=== PATIENT | female | born 1975 | race Hispanic/Latino ===

== ENCOUNTER 2017-06-04 18:01 | Emergency (ER) | payer BC ==
[2017-06-04 18:41] LABS: Blood, Urine Large (Negative); Glucose, Urine (Dipstick) Negative (Negative); Ketone, Urine 15 mg/dL (Negative); Protein, Urine (Dipstick) 100 mg/dL (Neg-Trace)
[2017-06-04 18:44] LABS: #Basophils 0.1 thou/uL (0.0-0.2); #Eosinphils 0.4 thou/uL (0.0-0.7); #Lymphocytes 3.6 thou/uL (1.20-3.40); #Monocytes 0.8 thou/uL (0.11-0.59); %Basophils 0.6 % (0.0-1.0); %Eosinophils 2.7 % (0.0-10.0); %Lymphocytes 26.1 % (21.0-51.0); %Monocytes 6.1 % (0.0-10.0); Hematocrit 41.9 % (36.0-47.0); Mean Platelet Volume 7.4 fL (7.4-10.4); Red Blood Cell (RBC) Count 4.81 mill/uL (4.20-5.40); White Blood Cell (WBC) Count 13.9 thou/uL (4.8-10.8)
[2017-06-04 18:48] LABS: Bilirubin Unable to Interpret (Negative); Nitrite Negative (Negative)
[2017-06-04 18:49] LABS: Bacteria/HPF None Seen HPF (None Seen); RBC/HPF GREATER THAN 50-TNTC HPF (0-3)
[2017-06-04 18:50] LABS: Hyaline Casts/LPF NONE SEEN LPF (0-3 Hyaline)
[2017-06-04 19:07] LABS: ALT (SGPT) 36 U/L (8-55); AST (SGOT) 34 U/L (5-34); Alkaline Phosphatase 92 U/L (40-150); Anion Gap 14 mmol/L (10-20); BUN (Urea Nitrogen) 12 mg/dL (7.0-18.7); Bilirubin, Total 0.3 mg/dL (0.2-1.2); Calc. Creatinine Clearance 0 mL/min (70-130); Calcium 9.6 mg/dL (7.8-10.44); Carbon Dioxide 26 mmol/L (22-29); Chloride 99 mmol/L (98-107); Estimated GFR-MDRD 70; Globulin 4.7 g/dL (2.4-3.5); Lipase 10 U/L (8-78); Protein, Total 8.7 g/dL (6.0-8.3)
[2017-06-04] MEDS ORDERED: Ketorolac Tromethamine 30 MG/ML VIAL ONE (19:36)
[2017-06-04] MEDS ORDERED: diphenhydrAMINE 50 MG/ML VIAL ONE (19:36)
[2017-06-04] MEDS ORDERED: Metoclopramide HCl 10 MG/2 ML VIAL ONE (19:36)
--- NOTE | 2017-06-04 20:42 | CT ---
CT OF ABDOMEN AND PELVIS PERFORMED WITH INTRAVENOUS CONTRAST ENHANCEMENT: History: Left flank pain. Comparison: 08-21-16 FINDINGS: The lung bases are clear. There are diffuse fatty changes of the liver, which his enlarged, measuring 24 cm. The spleen measur es 13.2 cm. Pancreas and gallbladder regions are unremarkable. Right and left adrenal glands are normal in appearance. Right and left kidneys are normal in size. T he left renal calculus which was located in the lower pole on the left kidney on this exam is locate d within the left renal pelvis measuring approximately 12 mm in size. There does not appear to be an y significant dilatation associated with this. This could intermittently obstruct. No ureteral calcu simon is noted. No significant periaortic or mesenteric adenopathy. CT OF PELVIS PERFORMED WITHOUT CONTRAST ENHANCEMENT: Left sided abdominal wall hernia is noted. The appendix is normal. No adenopathy or mass. Bilateral tubulization is seen. IMPRESSION: 1. Fatty changes of the liver with mild hepatosplenomegaly. 2. 12 mm calculus located in the left renal pelvis, although there is no significant dilatation at t his time the position of this could cause intermittent obstruction. 3. Stable appearance to a left sided lower abdominal wall hernia. POS: [facility]
[2017-06-04] MEDS ORDERED: Acetaminophen 500 MG TAB ONE (22:51)
== END 2017-06-04 23:12 | disposition home or self-care (01) ==
LOC: ERS 18:01
DX: K43.9 Ventral hernia without obstruction or gangrene (principal); R51 Headache; E11.9 Type 2 diabetes mellitus without complications; E03.9 Hypothyroidism, unspecified; E78.5 Hyperlipidemia, unspecified; I10 Essential (primary) hypertension; Z79.84 Long term (current) use of oral hypoglycemic drugs; Z79.899 Other long term (current) drug therapy
CPT/HCPCS: 36415; 74176; 80053; 81003; 81015; 81025; 83690; 85025; 87086; 96361; 96374; 96375; J1200; J1885; J2765

== ENCOUNTER 2017-07-22 12:51 | Emergency (ER) | payer BC ==
[2017-07-22 13:53] LABS: Bilirubin Negative (Negative); Blood, Urine Large (Negative); Glucose, Urine (Dipstick) 100 mg/dL (Negative); Ketone, Urine Trace mg/dL (Negative); Nitrite Negative (Negative); Protein, Urine (Dipstick) 100 mg/dL (Neg-Trace); Urobilinogen 0.2 mg/dL (0.2-1.0)
[2017-07-22 13:55] LABS: Bacteria/HPF 2+ HPF (None Seen); Hyaline Casts/LPF 0-3 HYALINE CAST LPF (0-3 Hyaline); RBC/HPF GREATER THAN 50-TNTC HPF (0-3)
[2017-07-22 13:55] LABS: #Eosinphils 0.3 thou/uL (0.0-0.7); #Lymphocytes 2.9 thou/uL (1.20-3.40); #Monocytes 0.7 thou/uL (0.11-0.59); #Neutrophils 5.5 thou/uL (1.40-6.50); %Basophils 0.4 % (0.0-1.0); %Eosinophils 2.9 % (0.0-10.0); %Lymphocytes 30.8 % (21.0-51.0); %Monocytes 7.3 % (0.0-10.0); Hematocrit 37.9 % (36.0-47.0); Mean Platelet Volume 7.8 fL (7.4-10.4); Red Blood Cell (RBC) Count 4.34 mill/uL (4.20-5.40); White Blood Cell (WBC) Count 9.4 thou/uL (4.8-10.8)
[2017-07-22 14:06] LABS: Oval Fat Bodies/HPF None Seen HPF (None Seen); Trichomonas/HPF None Seen HPF (None Seen)
[2017-07-22 14:13] LABS: ALT (SGPT) 34 U/L (8-55); AST (SGOT) 33 U/L (5-34); Alkaline Phosphatase 87 U/L (40-150); Anion Gap 15 mmol/L (10-20); BUN (Urea Nitrogen) 8 mg/dL (7.0-18.7); Bilirubin, Total 0.4 mg/dL (0.2-1.2); Calc. Creatinine Clearance 0 mL/min (70-130); Calcium 9.3 mg/dL (7.8-10.44); Carbon Dioxide 24 mmol/L (22-29); Chloride 105 mmol/L (98-107); Estimated GFR-MDRD Greater than 90; Globulin 4.2 g/dL (2.4-3.5); Protein, Total 7.8 g/dL (6.0-8.3)
[2017-07-22] MEDS ORDERED: Ketorolac Tromethamine 30 MG/ML VIAL ONE (16:16)
--- NOTE | 2017-07-22 16:31 | CT ---
CT OF ABDOMEN AND PELVIS 07/22/17 COMPARISON: 06/04/17 HISTORY: Left sided flank pain radiating into the left lower quadrant for one week. TECHNIQUE: Serial axial CT imaging is obtained at 5 mm intervals from the lung bases through the pubic symphysis without contrast. Coronal reformatted imaging obtained. FINDINGS: The lack of contrast limits assessment of the viscera, bowel, vascular structures and for lymphadenop athy. Imaged lung bases are unremarkable. No free intraperitoneal air or fluid. Diffuse hypodensity of the hepatic parenchyma noted, evidence of steatosis. Limited assessment of gallbladder, spleen, pancreas, and adrenal glands is unremarkable. Right kidney is unremarkable, with no evidence for right sided n ephrolithiasis or obstructive uropathy. There is a stone within the renal hilum on the left measuring 1.2 cm, stable. No left sided hydroneph rosis or evidence of left sided obstructive uropathy. There is a left lower quadrant fat containing h ernia lateral to the rectus abdominis musculature, stable. Limited assessment of the bowel demonstrates no evidence for obstruction. The appendix appears unrema rkable. There is scattered atherosclerotic calcification of the abdominal aorta. No acute osseous abnormality is seen. IMPRESSION: Stable 1.2 cm stone within the left renal hilum. No evidence for obstructive uropathy on either side. POS: [facility]
[2017-07-22] MEDS ORDERED: cefTRIAXone\\ROCEPHIN 2 GM in Sodium Chloride 0.9% 100 ML IVPB SCH (17:00)
== END 2017-07-22 18:10 | disposition home or self-care (01) ==
LOC: ERS 12:51
DX: N39.0 Urinary tract infection, site not specified (principal); E03.9 Hypothyroidism, unspecified; E11.9 Type 2 diabetes mellitus without complications; E78.5 Hyperlipidemia, unspecified; I10 Essential (primary) hypertension; K21.9 Gastro-esophageal reflux disease without esophagitis; Z79.84 Long term (current) use of oral hypoglycemic drugs; Z79.899 Other long term (current) drug therapy
CPT/HCPCS: 36415; 74176; 80053; 81003; 81015; 81025; 85025; 96361; 96374; 96375; J0696; J1885; J7050

== ENCOUNTER 2017-08-14 18:53 | Observation (INO) | payer BC ==
[2017-08-14 20:32] LABS: #Basophils 0.1 thou/uL (0.0-0.2); #Eosinphils 0.3 thou/uL (0.0-0.7); #Lymphocytes 2.8 thou/uL (1.20-3.40); #Monocytes 0.8 thou/uL (0.11-0.59); #Neutrophils 9.7 thou/uL (1.40-6.50); %Basophils 0.4 % (0.0-1.0); %Eosinophils 1.9 % (0.0-10.0); %Lymphocytes 20.5 % (21.0-51.0); %Monocytes 5.8 % (0.0-10.0); %Neutrophils 71.4 % (42.0-75.0); Hemoglobin 13.2 g/dL (12.0-16.0); Mean Corpuscular HGB CONC 33.6 g/dL (32.0-36.0); Mean Corpuscular Hemoglobin 28.9 pg (27.0-31.0); Mean Corpuscular Volume 86.3 fl (81.0-99.0); Mean Platelet Volume 7.5 fL (7.4-10.4); Platelet Count 348 thou/uL (130-400); RBC Distribution Width 12.7 % (11.5-14.5); Red Blood Cell (RBC) Count 4.57 mill/uL (4.20-5.40); White Blood Cell (WBC) Count 13.6 thou/uL (4.8-10.8)
[2017-08-14 20:49] LABS: ALT (SGPT) 21 U/L (8-55); AST (SGOT) 20 U/L (5-34); Albumin 3.7 g/dL (3.5-5.0); Alkaline Phosphatase 96 U/L (40-150); Anion Gap 17 mmol/L (10-20); BUN (Urea Nitrogen) 8 mg/dL (7.0-18.7); Bilirubin, Total 0.2 mg/dL (0.2-1.2); CK (CPK) 32 U/L (29-168); Calc. Creatinine Clearance 0 mL/min (70-130); Calcium 9.6 mg/dL (7.8-10.44); Carbon Dioxide 22 mmol/L (22-29); Chloride 102 mmol/L (98-107); Estimated GFR-MDRD 55; Globulin 4.3 g/dL (2.4-3.5); Glucose 390 mg/dL (70-105); Potassium 3.7 mmol/L (3.5-5.1); Sodium 137 mmol/L (136-145)
[2017-08-14 20:51] LABS: CKMB 0.5 ng/mL (0-6.6); Troponin I Less than 0.010 ng/mL (< 0.028)
--- NOTE | 2017-08-14 20:58 | RAD ---
AP CHEST: Indication: Left arm pain. Comparison: None. FINDINGS: Lungs are clear. Cardiomediastinal silhouette is within normal limits. No acute osseous abnormality i s evident. IMPRESSION: No acute cardiopulmonary abnormality. POS: [facility]
[2017-08-14] MEDS ORDERED: Acetaminophen 500 MG TAB ONE (21:53)
[2017-08-14] MEDS ORDERED: Nitroglycerin 2% Ointment 1 INCH/1 GM Packet ONE (21:53)
[2017-08-14] MEDS ORDERED: Labetalol HCl 100 MG/20 ML VIAL ONE (22:39)
[2017-08-14 22:45] LABS: Bilirubin Negative (Negative); Blood, Urine Large (Negative); Clarity CLEAR (Clear); Glucose, Urine (Dipstick) >=1000 mg/dL (Negative); Leukocyte Negative (Negative); Nitrite Negative (Negative); Protein, Urine (Dipstick) Negative (Neg-Trace); Specific Gravity, Urine 1.038 (1.002-1.036); Urobilinogen 0.2 mg/dL (0.2-1.0)
[2017-08-14 22:47] LABS: Bacteria/HPF None Seen HPF (None Seen); Hyaline Casts/LPF 0-3 HYALINE CAST LPF (0-3 Hyaline); Squamous Epithelial 0-3 HPF (0-3); WBC/HPF 0-3 HPF (0-3)
[2017-08-15 01:33] LABS: Troponin I Less than 0.010 ng/mL (< 0.028)
[2017-08-15] MEDS ORDERED: Enoxaparin Sodium 40 MG/0.4 ML SYRINGE SC SCH (02:00)
[2017-08-15] MEDS ORDERED: Dextrose 50% Abboject 50 ML SYRINGE SLOW IVP PRN (02:09)
[2017-08-15] MEDS ORDERED: Ondansetron ODT 4 MG TAB PO PRN (02:09)
[2017-08-15] MEDS ORDERED: HYDROcodone/Acetaminophen 10/325 mg Tablet PO PRN (02:09)
[2017-08-15] MEDS ORDERED: Acetaminophen 325 MG TAB PO PRN (02:09)
[2017-08-15] MEDS ORDERED: HYDROcodone/Acetaminophen 5/325 mg Tablet PO PRN (02:09)
[2017-08-15] MEDS ORDERED: Dextrose 5% in Water 1,000 ML IV PRN (02:09)
[2017-08-15] MEDS ORDERED: HumaLOG 300 UNITS/3 ML VIAL SC PRN (02:09)
[2017-08-15 02:58] LABS: Hemoglobin A1c 8.8 % (4.0-6.0)
[2017-08-15 03:07] LABS: Band 5 % (5-11); Eosinophils 1 % (0-10); Hemoglobin 12.3 g/dL (12.0-16.0); Lymphocytes 42 % (21-51); MDiff Complete? YES; Mean Corpuscular HGB CONC 32.9 g/dL (32.0-36.0); Mean Corpuscular Hemoglobin 28.6 pg (27.0-31.0); Mean Platelet Volume 7.6 fL (7.4-10.4); Monocytes 4 % (0-10); Neutrophil 48 % (42-75); PLT Morphology Comment Appears Adequate; Platelet Count 353 thou/uL (130-400); RBC Distribution Width 12.7 % (11.5-14.5); White Blood Cell (WBC) Count 14.4 thou/uL (4.8-10.8)
[2017-08-15 03:16] LABS: CKMB 0.4 ng/mL (0-6.6); Troponin I Less than 0.010 ng/mL (< 0.028)
[2017-08-15 03:21] LABS: Anion Gap 15 mmol/L (10-20); BUN (Urea Nitrogen) 13 mg/dL (7.0-18.7); Calc. Creatinine Clearance 0 mL/min (70-130); Calcium 9.4 mg/dL (7.8-10.44); Carbon Dioxide 24 mmol/L (22-29); Cardiac Risk 6.3 (Less than 4.5); Chloride 104 mmol/L (98-107); Cholesterol 227 mg/dl (< 200 Desired); Estimated GFR-MDRD 81; Glucose 238 mg/dL (70-105); HDL Cholesterol 36 mg/dL (>60 Neg Risk); LDL Cholesterol, Calculated 126 mg/dL; Potassium 3.5 mmol/L (3.5-5.1); Sodium 139 mmol/L (136-145); Triglycerides 323 mg/dL (Less than 150)
--- NOTE | 2017-08-15 05:05 | HP ---
PRIMARY CARE PHYSICIAN: Dr. Rosario Evangelista DATE OF ADMISSION: 08/15/2017 TIME OF SERVICE: 0145 CHIEF COMPLAINT: Chest and arm pain. HISTORY OF PRESENT ILLNESS: Ms. Adorno is a 42-year-old female with history of diabetes, hypothyroid ism, hypertension, severe obesity, hyperlipidemia, and GERD. The patient presents to the emergency department after development of aching into her left hand that moved proximally into her arm and eventually into her left chest. It began while she was getting liz dy to go to dinner. She did go to dinner with her family and completed her meal. She continued to h ave increasing symptoms and so the patient came to the Emergency Department for evaluation. She whitley ed any shortness of breath, no diaphoresis, no nausea, vomiting, or sweats. No fevers or chills, she had no recent GI bleeding. No abdominal pain. She denies any palpitations, cough or sputum product ion. She said that during the episode that her arm felt a little heavy, but did not really go numb. She does have a history of multiple risk factors. She had a stress test back in 2013 that was normal . She also reports an episode where her left side of her face had some swelling when she woke up a f ew days ago and resolved on its own within a few hours. She has no other current complaints. PAST MEDICAL HISTORY: 1. Diabetes mellitus type 2, uncontrolled. 2. Hypothyroidism on replacement. 3. Hypertension. 4. Gastroesophageal reflux disease. 5. Severe obesity. 6. Hyperlipidemia, primarily cholesterol. PAST SURGICAL HISTORY: 1. . 2. Cyst removed from the incisional site. 3. Hernia repair. 4. Bilateral tubal ligation. 5. Tonsillectomy. All remotely. HOME MEDICATIONS: 1. Tramadol 50 mg p.o. q.i.d. p.r.n. pain. 2. Zofran 4 mg p.o. t.i.d. p.r.n. nausea. 3. Losartan/HCTZ she thinks 50/12.5 p.o. daily. 4. Levothyroxine 200 mcg daily. 5. Liothyronine 25 mg p.o. daily. 6. Ibuprofen as needed. 7. Dexilant 60 mg p.o. at bedtime, which she is not currently taking. 8. Zyrtec 20 mg p.o. q.a.m. 9. Atorvastatin 20 mg p.o. at bedtime. 10. Glyburide 5 mg p.o. q.a.m. 11. Metformin 500 mg p.o. b.i.d. ALLERGIES: NKDA. FAMILY HISTORY: Significant for diabetes and hypertension in multiple members. Paternal grandmother at age 49 from a heart attack. SOCIAL HISTORY: Negative for habits x3. Only rare alcohol. She is . Her 's name is Clinton Norris, he is her surrogate medical decision maker should she become incapacitated. [phone] is his number. She wishes to be a full code. REVIEW OF SYSTEMS: A 10-point review of systems was performed, negative for all systems except as st ated per HPI. PHYSICAL EXAMINATION: VITAL SIGNS: Temperature 97.8, pulse 101, blood pressure 111/66, respiratory 20, satting 100% on leeann m air and her weight is 142.88 kilograms. GENERAL: She is awake. She is alert. She is oriented x3. She is an obese white female, appears to be in no distress. HEENT: Normocephalic, atraumatic. Her pupils are equal and reactive to light bilaterally, Equal, ro und, and moist. There is no visible lesion, no thrush. NECK: Supple. No lymphadenopathy. I cannot appreciate JVD. LUNGS: Clear to auscultation bilaterally. She has good air movement and symmetrical chest excursion . There is no wheezing, no rales, no rhonchi. No prolonged expiratory phase. CARDIOVASCULAR: She is slightly tachycardic, but regular. Normal S1 and S2. No S3 or S4. ABDOMEN: Obese, it is nontender, nondistended with good bowel sounds. I cannot palpate her organs. EXTREMITIES: No cyanosis, no clubbing, no pitting edema, but does seem to have some trace pedal nonp itting edema. Peripheral pulses are 2+ in dorsalis pedis, posterior tibial, and radial arteries. SKIN: Warm, moist, and well perfused. She has no rashes, no lesions. NEUROLOGIC: Cranial nerves II-XII are grossly intact. She has no focal deficits, 5/5 strength in al l 4 of her extremities. Normal sensation in all 4 of her extremities and a normal speech pattern. MUSCULOSKELETAL: Normal to inspection. I cannot appreciate effusions. She has good range of motion actively. LABORATORY DATA: Sodium 137, potassium 3.7, chloride 102, bicarbonate 22, BUN 8, creatinine 1.09, gl ucose 390. Liver functions are normal. White blood cell count 13.0 with normal differential, hemoglobin 13.2, hematocrit of 39.4 and platele ts of 348,000. She has normal differential. She had a CK-MB on arrival of 0.5, troponin I was undetectable less radha n 0.010. Repeat a few hours later was still undetectable. Her chest x-ray is negative for acute cardiopulmonary disease. ASSESSMENT AND PLAN: 1. Chest pain: The patient has multiple risk factors including obesity, hypertension, hyperlipidemi a, diabetes, and a family history of premature coronary disease. We will place in observation with t elemetry. We will get serial cardiac biomarkers, place her on nitro paste, metoprolol, daily aspirin , and if biomarkers remain negative, we will get a nuclear stress test in the morning. 2. Diabetes mellitus type 2, uncontrolled. The patient is on glyburide and metformin. We will cont inue these. We will add a sliding scale insulin. We will check hemoglobin A1c. 3. Hypothyroidism on levothyroxine and liothyronine. Check TSH in the morning. Continue home medic ations. 4. Hypertension. She is on losartan/HCTZ. We will continue. She is getting nitro paste 1 inch to the chest wall, she is also going to get metoprolol tartrate 12.5 mg p.o. b.i.d., watch blood pressur e very carefully. 5. Gastroesophageal reflux disease. She has been on Dexilant in the past, she has been off of it fo r some time. Certainly this could be a GI issue. We will place her on Pepcid 20 mg p.o. b.i.d. for stress prophylaxis. 6. Hyperlipidemia on atorvastatin 20 mg. We will continue. Check a fasting lipid profile.
[2017-08-15] MEDS ORDERED: Nitroglycerin 2% Ointment 1 INCH/1 GM Packet TOP SCH (06:00)
[2017-08-15] MEDS ORDERED: Levothyroxine Sodium 100 MCG TAB PO SCH (06:00)
[2017-08-15] MEDS ORDERED: Liothyronine Sodium 25 MCG TAB PO SCH (06:00)
[2017-08-15] MEDS ORDERED: Nitroglycerin 2% Ointment 1 INCH/1 GM Packet ONE ×2 (06:28)
[2017-08-15] MEDS ORDERED: Enoxaparin Sodium 40 MG/0.4 ML SYRINGE ONE (06:28)
[2017-08-15] MEDS ORDERED: Aspirin 325 MG TAB PO SCH (09:00)
[2017-08-15] MEDS ORDERED: Metoprolol Tartrate 25 MG TAB PO SCH (09:00)
[2017-08-15] MEDS ORDERED: Famotidine 20 MG TAB PO SCH (09:00)
[2017-08-15] MEDS ORDERED: Metoprolol Tartrate 25 MG TAB ONE (10:34)
[2017-08-15] MEDS ORDERED: Famotidine 20 MG TAB ONE (10:34)
[2017-08-15] MEDS ORDERED: Aspirin 325 MG TAB ONE (10:34)
[2017-08-15] MEDS ORDERED: Regadenoson 0.4 MG/5 ML SYRINGE ONE (11:12)
--- NOTE | 2017-08-15 11:41 | NM ---
MYOCARDIAL PERFUSION EVALUATION: CORRELATION: Please reference the stress EKG portion of the exam through the division of cardiology for further de tails. TECHNIQUE: The stress portion of the exam was performed as a one day exam. CLINICAL HISTORY: Chest pain. RADIOPHARMACEUTICAL: Technetium 99m sestamibi 33 millicuries IV administered at stress. FINDINGS: There is stable patient position on the rotational raw data. There is no significant perfusion defec t of the left ventricular burns evident by stress imaging. Gated imaging reveals wall motion and con tractility with a calculated LVEF of 54%. IMPRESSION: No scintigraphic evidence to indicate significant areas of ischemia or scar involving the left ventri doris by stress imaging. POS: [facility]
[2017-08-15] MEDS ORDERED: Acetaminophen 325 MG TAB ONE (11:42)
[2017-08-15] MEDS ORDERED: Insulin Regular 300 UNITS/3 ML VIAL ONE (11:42)
--- NOTE | 2017-08-15 12:13 | DIS ---
DATE OF ADMISSION: 08/15/2017 DATE OF DISCHARGE: 08/15/2017 DISCHARGE DIAGNOSES: 1. Chest pain, noncardiac in origin. 2. Diabetes mellitus, stable. 3. Hypothyroidism, stable. 4. Hypertension, stable. 5. Gastroesophageal reflux disease, stable. 6. Severe obesity, stable. 7. Hyperlipidemia, stable. DISCHARGE MEDICATIONS: The patient's discharge medications are the same as admit medications. BRIEF HOSPITAL COURSE: This is a 42-year-old pleasant lady who came into the hospital with chest marla n. Please refer to the admitting physician's H&P for further details. The troponins were trended, w hich were all negative. The patient had a stress test which was negative as well. Ejection fraction was 54%, it showed no reversible deficits. The patient is right now medically stable to be discharg ed. PHYSICAL EXAMINATION: VITAL SIGNS: At the time of discharge, her temperature was afebrile, pulse was 80, blood pressure wa s 101/70, respirations 18. GENERAL: The patient was lying in bed in no apparent distress. HEENT: Atraumatic and normocephalic. Pupils equal, round, react to light. Extraocular movements in tact. Mucous membranes moist. NECK: Supple. No JVD. CHEST: Breath sounds. There are no rales or rhonchi. HEART: S1, S2, no murmurs or gallops. ABDOMEN: Soft. EXTREMITIES: No cyanosis, clubbing or edema. Distal pulses present. NEUROLOGIC: Alert, awake, oriented. No cranial deficits, no sensorimotor deficits. The patient right now medically stable to be discharged. She is asked to come back to the emergency room in case symptoms recur. Total time for this discharge took 35 minutes.
[2017-08-15 12:23] LABS: CKMB 0.4 ng/mL (0-6.6); Troponin I Less than 0.010 ng/mL (< 0.028)
[2017-08-15] MEDS ORDERED: Atorvastatin Calcium 20 MG TAB PO SCH (21:00)
[2017-08-16] MEDS ORDERED: Enoxaparin Sodium 40 MG/0.4 ML SYRINGE SC SCH (21:00)
--- NOTE | 2017-08-19 15:37 | EKG ---
Test Reason : Blood Pressure : / mmHG Vent. Rate : 110 BPM Atrial Rate : 110 BPM P-R Int : 158 ms QRS Dur : 092 ms QT Int : 344 ms P-R-T Axes : 046 118 031 degrees QTc Int : 465 ms Sinus tachycardia Left posterior fascicular block Abnormal ECG No ST elevation/MA Confirmed by LOREN STACY, ANDREA ([id number]), publications editor ELIJAH HOUSER ([id number]) on 08/19/2017 3:37:01 PM Referred By: Confirmed By:ANDREA PIMENTEL MD
--- NOTE | 2017-09-14 20:44 | STRESS ---
Acquisition Time: 2017-08-15 09:51:53 Total Exercise Time: 00:01:00 Test Indications: CHEST PAIN Medications: Protocol: LEXISCAN Max HR: 116 BPM 64% of Pred: 179 BPM Max BP: 144/080 mmHG Max Work Load: 1.0 METS RESTING ECG: NORMAL SINUS RHYTHM AT 96 BPM WITH LEFT POSTERIOR FASCICULAR BLOCK AND EARLY R-WAVE TRANSITION SYMPTOMS: NONE NORMAL BP RESPONSE ECTOPY: NONE ECG STRESS: NO SIGNIFICANT CHANGES INTERPRETATION: NEGATIVE ECG/AWAIT NUCLEAR IMAGES FOR DEFINITIVE DIAGNOSIS Confirmed by RAMANDEEP HATCH M.D. ([id number] on 09/14/2017 8:43:16 PM Referred By: MD Jori EWING Confirmed By:RAMANDEEP HATCH M.D.
== END 2017-08-15 12:55 | disposition home or self-care (01) ==
LOC: ERS 18:53 → ERHOLD 08-15 00:37
PROVIDERS: ADMIT Internal Medicine Infectious Disease; ATTEND Internal Medicine Infectious Disease
DX: R07.89 Other chest pain (principal); E11.9 Type 2 diabetes mellitus without complications; E03.9 Hypothyroidism, unspecified; I10 Essential (primary) hypertension; K21.9 Gastro-esophageal reflux disease without esophagitis; E66.01 Morbid (severe) obesity due to excess calories; E78.5 Hyperlipidemia, unspecified; Z79.84 Long term (current) use of oral hypoglycemic drugs; Z79.899 Other long term (current) drug therapy; Z98.51 Tubal ligation status; Z90.89 Acquired absence of other organs; Z98.891 History of uterine scar from previous surgery; Z98.890 Other specified postprocedural states; Z82.49 Family history of ischemic heart disease and other diseases of the circulatory system
CPT/HCPCS: 36415; 36416; 71045; 78452; 80048; 80053; 80061; 81003; 81015; 82550; 82553; 83036; 84443; 84484; 85007; 85025; 85027; 93005; 93017; 96372; 96374; A9500; J1650; J1815; J2785

== ENCOUNTER 2017-11-30 07:52 | Emergency (ER) | payer BC ==
[2017-11-30] MEDS ORDERED: Metoclopramide 10 MG/10 ML UDCUP ONE (08:36)
[2017-11-30] MEDS ORDERED: diphenhydrAMINE 50 MG/ML VIAL ONE (08:36)
[2017-11-30] MEDS ORDERED: Ketorolac Tromethamine 30 MG/ML VIAL ONE (08:36)
[2017-11-30] MEDS ORDERED: Metoclopramide HCl 10 MG/2 ML VIAL IVP SCH (08:45)
[2017-11-30 08:59] LABS: #Basophils 0.1 thou/uL (0.0-0.2); #Eosinphils 0.3 thou/uL (0.0-0.7); #Lymphocytes 3.6 thou/uL (1.20-3.40); #Monocytes 0.7 thou/uL (0.11-0.59); #Neutrophils 5.9 thou/uL (1.40-6.50); %Basophils 0.6 % (0.0-1.0); %Eosinophils 2.6 % (0.0-10.0); %Lymphocytes 34.4 % (21.0-51.0); %Monocytes 6.3 % (0.0-10.0); %Neutrophils 56.1 % (42.0-75.0); Hemoglobin 12.7 g/dL (12.0-16.0); Mean Corpuscular HGB CONC 32.6 g/dL (32.0-36.0); Mean Corpuscular Hemoglobin 27.9 pg (27.0-31.0); Mean Corpuscular Volume 85.6 fl (81.0-99.0); Mean Platelet Volume 7.8 fL (7.4-10.4); Platelet Count 377 thou/uL (130-400); RBC Distribution Width 13.3 % (11.5-14.5); Red Blood Cell (RBC) Count 4.54 mill/uL (4.20-5.40); White Blood Cell (WBC) Count 10.5 thou/uL (4.8-10.8)
[2017-11-30 09:09] LABS: ALT (SGPT) 23 U/L (8-55); AST (SGOT) 25 U/L (5-34); Albumin 3.8 g/dL (3.5-5.0); Alkaline Phosphatase 103 U/L (40-150); Anion Gap 15 mmol/L (10-20); BUN (Urea Nitrogen) 7 mg/dL (7.0-18.7); Bilirubin, Total Less than 0.2 mg/dL (0.2-1.2); Calc. Creatinine Clearance 0 mL/min (70-130); Calcium 9.1 mg/dL (7.8-10.44); Carbon Dioxide 22 mmol/L (22-29); Chloride 103 mmol/L (98-107); Estimated GFR-MDRD 84; Globulin 4.5 g/dL (2.4-3.5); Glucose 347 mg/dL (70-105); Protein, Total 8.3 g/dL (6.0-8.3); Sodium 136 mmol/L (136-145)
--- NOTE | 2017-11-30 09:34 | CT ---
BRAIN CT WITHOUT IV CONTRAST: HISTORY: A 42-year-old female with a history of a headache, gradually getting worse. COMPARISON: 02/19/2015 FINDINGS: Minimal motion artifact. No focal mass or midline shift. No intraaxial or extraaxial hemorrhage. IMPRESSION: No acute intracranial process. No mass or bleed. The sinuses and mastoids are clear. POS: [facility]
== END 2017-11-30 11:23 | disposition home or self-care (01) ==
LOC: ERS 07:52
DX: I10 Essential (primary) hypertension (principal); R51 Headache; E11.9 Type 2 diabetes mellitus without complications; E03.9 Hypothyroidism, unspecified; K21.9 Gastro-esophageal reflux disease without esophagitis; E78.5 Hyperlipidemia, unspecified; Z79.82 Long term (current) use of aspirin; Z79.899 Other long term (current) drug therapy
CPT/HCPCS: 36415; 70450; 80053; 85025; 96361; 96365; 96375; J1200; J1885; J2765

== ENCOUNTER 2018-07-17 22:17 | Emergency (ER) | payer BC, SELFPAY ==
[2018-07-17 23:40] LABS: #Basophils 0.1 thou/uL (0.0-0.2); #Eosinphils 0.3 thou/uL (0.0-0.7); #Lymphocytes 3.6 thou/uL (1.20-3.40); #Neutrophils 9.8 thou/uL (1.40-6.50); %Basophils 0.6 % (0.0-1.0); %Eosinophils 2.2 % (0.0-10.0); %Lymphocytes 24.5 % (21.0-51.0); %Monocytes 6.5 % (0.0-10.0); %Neutrophils 66.3 % (42.0-75.0); Hemoglobin 13.9 g/dL (12.0-16.0); Mean Corpuscular HGB CONC 34.5 g/dL (32.0-36.0); Mean Corpuscular Hemoglobin 29.5 pg (27.0-31.0); Mean Corpuscular Volume 85.7 fL (78.0-98.0); Mean Platelet Volume 7.8 fL (7.4-10.4); Platelet Count 332 thou/uL (130-400); RBC Distribution Width 13.4 % (11.5-14.5); White Blood Cell (WBC) Count 14.8 thou/uL (4.8-10.8)
[2018-07-17 23:59] LABS: ALT (SGPT) 20 U/L (8-55); AST (SGOT) 28 U/L (5-34); Albumin 3.9 g/dL (3.5-5.0); Alkaline Phosphatase 97 U/L (40-150); Anion Gap 14 mmol/L (10-20); BUN (Urea Nitrogen) 9 mg/dL (7.0-18.7); Bilirubin, Total 0.3 mg/dL (0.2-1.2); Calc. Creatinine Clearance 0 mL/min (70-130); Calcium 10.1 mg/dL (7.8-10.44); Carbon Dioxide 25 mmol/L (22-29); Chloride 98 mmol/L (98-107); Estimated GFR-MDRD Greater than 90; Globulin 4.4 g/dL (2.4-3.5); Glucose 164 mg/dL (70-105); Lipase 17 U/L (8-78); Potassium 3.4 mmol/L (3.5-5.1); Protein, Total 8.3 g/dL (6.0-8.3); Sodium 134 mmol/L (136-145)
--- NOTE | 2018-07-18 00:02 | CT ---
CT OF CERVICAL SPINE PERFORMED WITHOUT CONTRAST ENHANCEMENT: 07/17/18 HISTORY: Neck pain, numbness in both arms, worse on the left. The vertebral bodies are normal in height. Disc spaces appear fairly well preserved and the facets ap pear to be in normal alignment. There is no evidence for fracture. I do not appreciate any areas of canal or foraminal stenosis on this examination. The exam quality is limited due to body habitus. IMPRESSION: Unremarkable CT of the cervical spine. POS: [facility]
--- NOTE | 2018-07-18 00:06 | CT ---
CT OF BRAIN PERFORMED WITHOUT CONTRAST ENHANCEMENT: 07/17/18 HISTORY: Headache. Bilateral arm numbness and tingling. Worse on the left. COMPARISON: 11/30/17 study. The ventricular and cisternal system is within normal limits. There is no signs of intracerebral hemo rrhage or extra-axial fluid collections. Mastoid air cells and visualized sinuses are clear. IMPRESSION: No acute intracranial abnormalities. POS: [facility]
--- NOTE | 2018-07-21 12:06 | EKG ---
Test Reason : Blood Pressure : / mmHG Vent. Rate : 103 BPM Atrial Rate : 103 BPM P-R Int : 156 ms QRS Dur : 090 ms QT Int : 352 ms P-R-T Axes : 042 089 040 degrees QTc Int : 461 ms Sinus tachycardia Possible Inferior infarct , age undetermined Abnormal ECG Confirmed by HOSSEIN ARAGON DO ([id number]), index editor ELIJAH HOUSER ([id number]) on 07/21/2018 12:06:03 PM Referred By: Confirmed By:HOSSEIN ARAGON DO
== END 2018-07-18 00:46 | disposition home or self-care (01) ==
LOC: ERS 22:17
DX: M54.12 Radiculopathy, cervical region (principal); K21.9 Gastro-esophageal reflux disease without esophagitis; E03.9 Hypothyroidism, unspecified; I10 Essential (primary) hypertension; E78.5 Hyperlipidemia, unspecified; Z79.82 Long term (current) use of aspirin; Z79.899 Other long term (current) drug therapy
CPT/HCPCS: 70450; 72125; 80053; 83690; 84484; 85025; 93005

== ENCOUNTER 2018-10-23 18:03 | Emergency (ER) | payer BC ==
[2018-10-23] MEDS ORDERED: diphenhydrAMINE 50 MG/ML VIAL ONE (20:55)
[2018-10-23] MEDS ORDERED: Metoclopramide HCl 10 MG/2 ML VIAL ONE (20:55)
[2018-10-23] MEDS ORDERED: Acetaminophen 500 MG TAB ONE (20:55)
== END 2018-10-23 22:44 | disposition home or self-care (01) ==
LOC: ERS 18:03
DX: R51 Headache (principal); E11.9 Type 2 diabetes mellitus without complications; E03.9 Hypothyroidism, unspecified; K21.9 Gastro-esophageal reflux disease without esophagitis; E78.5 Hyperlipidemia, unspecified; I10 Essential (primary) hypertension; F32.9 Major depressive disorder, single episode, unspecified; Z79.899 Other long term (current) drug therapy; Z79.82 Long term (current) use of aspirin; Z79.84 Long term (current) use of oral hypoglycemic drugs
CPT/HCPCS: 96365; 96366; 96375; J1200; J2765

== ENCOUNTER 2019-05-19 20:45 | Emergency (ER) | payer OTHER ==
--- NOTE | 2019-05-19 21:10 | RAD ---
EXAM: Right knee: 4 views INDICATIONS: Injury COMPARISON: None. FINDINGS: Mild degenerative change. No fracture. No joint effusion. IMPRESSION: No acute finding
[2019-05-19] MEDS ORDERED: HYDROcodone/Acetaminophen 5/325 mg Tablet ONE (21:41)
[2019-05-19] MEDS ORDERED: Acetaminophen 500 MG TAB ONE (21:41)
== END 2019-05-19 21:50 | disposition home or self-care (01) ==
LOC: ERS 20:45
DX: S86.911A Strain of unspecified muscle(s) and tendon(s) at lower leg level, right leg, initial encounter (principal); E11.9 Type 2 diabetes mellitus without complications; E03.9 Hypothyroidism, unspecified; K21.9 Gastro-esophageal reflux disease without esophagitis; E78.5 Hyperlipidemia, unspecified; E78.00 Pure hypercholesterolemia, unspecified; I10 Essential (primary) hypertension; F32.9 Major depressive disorder, single episode, unspecified; Z79.82 Long term (current) use of aspirin; Z79.899 Other long term (current) drug therapy; Z79.84 Long term (current) use of oral hypoglycemic drugs; W18.30XA Fall on same level, unspecified, initial encounter

== ENCOUNTER 2020-07-21 13:17 | Outpatient (CLI) | payer OTHER ==
--- NOTE | 2020-07-21 14:28 | MMO ---
Bilateral MAMMO Bilat Screen [facility]. CLINICAL HISTORY: Patient is 45 years old and is seen for screening. The patient has the following family history of breast cancer: paternal aunt, at age 45. The patient has no personal history of cancer. VIEWS: The views performed were: bilateral craniocaudal with tomosynthesis and bilateral mediolateral oblique with tomosynthesis. FILMS COMPARED: The present examination has been compared to a prior imaging study performed at [facility] on 02/19/2004. This study has been interpreted with the assistance of computer-aided detection. MAMMOGRAM FINDINGS: The breasts are heterogeneously dense, which could obscure a lesion on mammography. There are several intramammary lymph nodes seen in the right breast. There are no suspicious masses, suspicious calcifications, or areas of architectural distortion. IMPRESSION: THERE IS NO MAMMOGRAPHIC EVIDENCE OF MALIGNANCY. A ROUTINE FOLLOW-UP MAMMOGRAM IN 1 YEAR IS RECOMMENDED. THE RESULTS OF THIS EXAM WERE SENT TO THE PATIENT. ACR BI-RADS Category 2 - Benign finding MAMMOGRAPHY NOTE: 1. A negative mammogram report should not delay a biopsy if a dominant of clinically suspicious mass is present. 2. Approximately 10% to 15% of breast cancers are not detected by mammography. 3. Adenosis and dense breasts may obscure an underlying neoplasm. Reported by: SYLVIA JURADO MD Electonically Signed: [id number]
== END 2020-07-21 13:18 | disposition home or self-care (01) ==
LOC: BICMAMMO 13:17
PROVIDERS: ATTEND Physician Assistant
DX: Z12.31 Encounter for screening mammogram for malignant neoplasm of breast (principal); Z80.3 Family history of malignant neoplasm of breast
CPT/HCPCS: 77063; 77067